=== PATIENT | female | born 1950 | race American Indian/Alaskan Native ===

== ENCOUNTER 2017-12-28 11:23 | Emergency (ER) | payer MEDICARE ==
[2017-12-28 11:45] VITALS: BP 140/74
--- NOTE | 2017-12-28 12:52 | XRay Report ---
FINAL REPORT EXAM: XR CHEST ROUTINE 2V HISTORY: upper resp TECHNIQUE: Frontal and lateral views of the chest. PRIORS: None currently available. FINDINGS: Cardiac silhouette is within normal limits. There is no effusion. There is no pneumothorax. Focal ill-defined opacity in the lingula. There are no suspicious osseous lesions. IMPRESSION: Suspect lingular infiltrate..
--- NOTE | 2017-12-28 15:16 | Emergency Department Report ---
Minor Respiratory - HPI Chief Complaint: Upper Respiratory Infection Stated Complaint: CHEST PAINS/COUGH PAIN Time Seen by Provider: 12/28/17 15:02 Duration: over a week Pain Location: Other (generalized pain 10/10) Severity: severe Minor Respiratory: Yes Rhinorrhea (nasal congestion and runny nose), Yes Sore Throat, Yes Able to Tolerate Fluids, Yes Cough, No Ear Pain, No Sick Contacts, No Hemoptysis, No Chest Pain, No Shortness of Breath, No Fever Other History: This is a 67-year-old female here report that she has been having cough and cold, runny nose and congestion for over a week with sinus drainage sore throat and developing a cough that is getting worse over the last few days. She says she has generalized fatigue and generalized pain to include Arthrotec 10/10 and achy. Denies any drooling. Facial pressure. Denies any fever or chills. [id number] medication not helping. No alleviating or exacerbating factors for pain. ED Review of Systems ROS: Stated complaint: CHEST PAINS/COUGH PAIN Other details as noted in HPI Constitutional: denies: chills, fever Eyes: denies: eye pain, eye discharge, vision change ENT: throat pain, congestion. denies: ear pain, dental pain, hearing loss Respiratory: cough. denies: shortness of breath, SOB with exertion, SOB at rest , stridor, wheezing Cardiovascular: denies: chest pain, palpitations, edema, syncope Gastrointestinal: denies: abdominal pain, nausea, vomiting, diarrhea Genitourinary: denies: dysuria, discharge Musculoskeletal: arthralgia, myalgia. denies: back pain, joint swelling Skin: denies: rash, lesions, pruritus Neurological: denies: headache, weakness, numbness, paresthesias, confusion, abnormal gait, vertigo Psychiatric: denies: anxiety, depression ED Past Medical Hx - Past Medical History Previous Medical History?: Yes Hx Asthma: Yes Additional medical history: high cholesterol - Surgical History Past Surgical History?: No - Family History Family history: hypertension - Social History Smoking Status: Never Smoker Substance Use Type: Alcohol Minor Respiratory Exam - Exam General: Vital signs noted. No distress. Alert and acting appropriately. This is a 67-year-old female well-nourished well-developed and nontoxic in appearance. HEENT: Yes Moist Mucous Membranes, Yes Rhinorrhea (nasal congestion with clear drainage), Yes Maxillary Tenderness, No Pharyngeal Erythema, No Pharyngeal Exudates, No Conjuctival Injection, No Frontal Tenderness Ear: Neither TM Bulge (bilateral TM congested without erythema), Neither TM Erythema, Neither EAC Pain, Neither EAC Discharge Neck: Yes Supple (full range of motion and no C-spine tenderness), No Adenopathy Lungs: Yes Good Air Exchange, Yes Ronchi (rhonchi that is cleared with cough and ), Yes Cough, No Wheezes, No Labored Respirations, No Retractions, No Use of Accessory Muscles, No Other Abnormal Lung Sounds Heart: Yes Regular (tachycardia at 103), No Murmur Abdomen: Yes Normal Bowel Sounds (normal bowel sounds in all quadrants), No Tenderness (nontender the palpation in all quadrants), No Peritoneal Signs Skin: No Rash, No Edema Neurologic: Alert and oriented 3, GCS of 15 and normal gait Musculoskeletal: Unremarkable. No cce. + 2 pulses in all extremities, no neurovascular compromise ED Course Vital Signs 12/28/17 11:29 Temperature 98.3 F Pulse Rate 103 H Respiratory 22 Rate Blood Pressure 140/74 Blood Pressure 140/74 [Right] O2 Sat by Pulse 98 Oximetry - Reevaluation(s) Reevaluation #1: 12/28/17 15:42 I discussed the patient's that I was going to treat her with nebulizer treatment and steroids and started on antibiotics because she has pneumonia and one part of her lungs. She was moved to the treatment room to get treatment in hospital before discharge. She is stable at present and in no acute distress. Reevaluation #2: 12/28/17 16:01 I was told by nursing staff that patient left AMA befor getting medication ED Medical Decision Making - Radiology Data Radiology results: report reviewed X-ray 2 views dictated by radiologist and report reviewed by myself. Please see details below. Patient: CLAUDIA KABA MR#: [id number] : 1950 Acct:[id number] Age/Sex: 67 / F ADM Date: 12/28/17 Loc: ED Attending Dr: Ordering Physician: JENELLE EMERY MD Date of Service: 12/28/17 Procedure(s): XR chest routine 2V Accession Number(s): [id number] cc: ED MD YULY Fluoro Time In Minutes: FINAL REPORT EXAM: XR CHEST ROUTINE 2V HISTORY: upper resp TECHNIQUE: Frontal and lateral views of the chest. PRIORS: None currently available. FINDINGS: Cardiac silhouette is within normal limits. There is no effusion. There is no pneumothorax. Focal ill-defined opacity in the lingula. There are no suspicious osseous lesions. IMPRESSION: Suspect lingular infiltrate.. Transcribed By: TYM Dictated By: JERILYN COURTNEY MD Electronically Authenticated By: JERILYN COURTNEY MD Signed Date/Time: 12/28/171249 DD/ 49 - Medical Decision Making This is a 67-year-old female came to the hospital report that she is feeling fatigued and having cold symptoms that started with upper respiratory and no progress in with continuous coughing and she would like to be evaluated. Chest x-ray: Shows probable lingular infiltrate Assessment/plan 1: Community-acquired pneumonia-per chest x-ray we see detail result. Levaquin was ordered but patient left AMA before she could have gotten medication she was ordered to receive duoneband Decadron she also did not get that because she left AMA 2: Upper respiratory with cough and congestion-patient left AMA I was told by nurse after patient was placed in treatment room that she did not get medication that was ordered because she left AMA and refused to sign the AMA form. I was given this information after patient left. I called patient via phone and ask her to call so we can discuss this and she will need to come back for treatment. I gave number to the emergency room for her to call and my name but patient did not call back. Patient left AMA before in-hospital treatment or prescription given for community-acquired pneumonia and upper respiratory infection with cough and congestion. Dr. Holley is aware. - Differential Diagnosis PNA, bronchitis, sinusitis, URI with cough and congestion Critical care attestation.: If time is entered above; I have spent that time in minutes in the direct care of this critically ill patient, excluding procedure time. ED Disposition Clinical Impression: URI with cough and congestion Community acquired pneumonia Qualifiers: Laterality: unspecified laterality Qualified Code(s): J18.9 - Pneumonia, unspecified organism Disposition: LEFT AGAINST MED ADVICE Is pt being admited?: No Does the pt Need Aspirin: No Condition: Stable Forms: AMA Form
[2017-12-28] MEDS ORDERED: DECADRON IM ONE (15:20)
[2017-12-28] MEDS ORDERED: LEVAQUIN PO ONE (15:20)
[2017-12-28] MEDS ORDERED: DUONEB *Not for PRN Use IH ONE (15:21)
== END 2017-12-28 15:49 | disposition left against medical advice (07) ==
LOC: ED 11:23
DX: J06.9 Acute upper respiratory infection, unspecified (principal); J18.9 Pneumonia, unspecified organism; J45.909 Unspecified asthma, uncomplicated; E78.00 Pure hypercholesterolemia, unspecified; Z88.0 Allergy status to penicillin
CPT/HCPCS: 71046; 99282; J1100